=== PATIENT | female | born 1965 | race Caucasian/White ===

== ENCOUNTER → 2016-02-28 | Outpatient (CLI) | payer BC ==
[~2016-02-28] MED LIST: AMOX1TAB12 PO; PRED20TA PO
[2016-02-28 12:08] VITALS: BP 137/82
--- NOTE | 2016-02-28 12:08 | Urgent Care T Sheet Gen (E) ---
Intake General Temperature (Fahrenheit): 97.3 Pulse: 73 Blood Pressure Systolic: 137 Blood Pressure Diastolic: 82 Respirations: 16 SPO2: 96 Description of Symptoms Patient presents with illness since before Marie. Initially she had fever and nasal congestion. States the nasal congestion moved to her chest where it has been present ever since. States her cough goes back and forth between productive and dry. Her chest became tight this morning which prompted her to be seen. No fever. Her is currently being treated for pneumonia. Hasn 't been taking any OTC meds because she isn't sure what to take. History of Present Illness Home Meds Active Scripts Prednisone 20 Mg [id number] Mg PO DAILY #8 TAB Prov:MARINA GONGROA 02/28/16 Amoxicillin/Clavulanate Potassium (Augmentin 875mg/125mg)1 Each Tablet1 Tab PO BID #14 TAB Ref 0 Prov:MARINA GONGORA 02/28/16 Respiratory Constitutional Symptoms: No Fever, Malaise EENTM: No symptoms reported Respiratory: Cough Short of breathNo Wheezing Cardiovascular: No symptoms reported Gastrointestinal/Abdominal: No symptoms reported All Other Systems Reviewed Remaining Systems: All other systems reviewed with negative findings Physical Exam Physical Exam General Appearance: WD/WN No apparent distress Eyes, Ears, Nose, Throat Ex: TMs normal Pharynx normal Other (nose is clear) Neck Exam: Supple Lymphadenopathy Respiratory Exam: RhonchiNo Wheezes Cardiovascular Exam: Regular rate, rhythm Departure Urgent Care Impression Impression: Primary Impression: Bronchitis Departure Disposition: 01 HOME OR SELF-CARE Condition: Stable Referrals: Pattie Sharpe (PCP) Additional Instructions: The patient has been sick for quite some time. I have started her on Augmentin for infection. I have also prescribed Prednisone for a few days. This should help with inflammation and aches. No NSAIDs while on steroid. Rest. Fluids Return as needed. No wheezing so I opted not to prescribe an inhaler Patient understands DC instructions. All questions were answered. Scripts Prednisone 20 Mg [id number] Mg PO DAILY #8 TAB Prov:MARINA GONGORA 02/28/16 Amoxicillin/Clavulanate Potassium (Augmentin 875mg/125mg)1 Each Tablet1 Tab PO BID #14 TAB Ref 0 Prov:MARINA GONGORA 02/28/16 End of report . MARINA GONGORA Feb 28, 2016 10:53
== END ==
LOC: MHUC 10:29
PROVIDERS: ATTEND Physician Assistant
DX: J40 Bronchitis, not specified as acute or chronic (principal)
CPT/HCPCS: 99213